=== PATIENT | female | born 1960 | race African-American/Black ===

== ENCOUNTER 2020-07-22 23:10 | Emergency (ER) | payer MEDICARE, OTHER ==
[~2020-07-22 23:10] MED LIST: ATIVAN1 MG PO; HCTZ12.5 MG PO; LIPITOR 10MG TA10 MG PO; TENORMIN50 MG PO
[2020-07-23] MEDS ORDERED: TRAMADOL HCL50 MG PO (02:58)
== END 2020-07-23 03:14 | disposition home or self-care (01) ==
LOC: FER 23:10
DX: S76.011A Strain of muscle, fascia and tendon of right hip, initial encounter (principal); M25.561 Pain in right knee; I10 Essential (primary) hypertension; Z79.899 Other long term (current) drug therapy; W01.0XXA Fall on same level from slipping, tripping and stumbling without subsequent striking against object, initial encounter
CPT/HCPCS: 73502; 73564; 73610

== ENCOUNTER 2020-09-23 14:06 | Emergency (ER) | payer MEDICARE, OTHER ==
[~2020-09-23 14:06] MED LIST changes: +TRAMADOL HCL50 MG PO
[2020-09-23 15:38] LABS: BASOPHIL 0.4 % (0-2); EOSINOPHIL 0.9 % (0-5); HCT 41.5 % (37.0-47.0); HGB 13.5 g/dl (12.5-16.0); LYMPHOCYTE 22.7 % (15-48); MCHC 32.5 g/dL (32.0-36.0); MCV 79.8 fL (78.0-100.0); MONOCYTE 12.3 % (0-12); MPV 9.9 fL (6.0-9.5); NEUTROPHIL 63.3 % (41-80); NRBC 0; PLT 229 K/uL (150-400); RDW 13.7 % (11.5-14.0); WBC 5.7 K/uL (4.0-10.5)
[2020-09-23 16:08] LABS: BUN/CREAT RATIO (CALC) 14.3 RATIO; CREATININE 0.7 mg/dL (0.51-0.95); POTASSIUM 3.5 mmol/L (3.5-5.1)
[2020-09-23 18:25] LABS: BILIRUBIN NEGATIVE (NEGATIVE); BLOOD NEGATIVE Ery/uL (NEGATIVE); CLARITY CLEAR (CLEAR); COLOR YELLOW (YELLOW); GLUCOSE (U) NORMAL (NORMAL); LEUKOCYTES NEGATIVE Leu/uL (NEGATIVE); NITRITE NEGATIVE (NEGATIVE); PROTEIN NEGATIVE (NEGATIVE); SPECIFIC GRAVITY 1.015 (1.001-1.030); UROBILINOGEN 0.2 mg/dL (0.2-1.0)
[2020-09-23 18:37] LABS: CORONAVIRUS 2019 SARS-COV-2 NEGATIVE (NEGATIVE); INFLUENZA A NAA NEGATIVE (NEGATIVE)
[2020-09-23] MEDS ORDERED: AZITHROMYCIN250 MG PO (18:45)
[2020-09-23] MEDS ORDERED: BACLOFEN 10MG T10 MG PO (18:45)
[2020-09-23] MEDS ORDERED: PREDNISONE 20MG20 MG PO (18:45)
== END 2020-09-23 19:14 | disposition home or self-care (01) ==
LOC: FER 14:06
PROVIDERS: Nurse Practitioner Family
DX: J18.9 Pneumonia, unspecified organism (principal); H61.22 Impacted cerumen, left ear; M54.2 Cervicalgia; I10 Essential (primary) hypertension; Z88.1 Allergy status to other antibiotic agents; Z90.710 Acquired absence of both cervix and uterus; Z79.899 Other long term (current) drug therapy; Z20.822 Contact with and (suspected) exposure to COVID-19
CPT/HCPCS: 36415; 71046; 80048; 81003; 84484; 85025; 93005; 94010; J0696; J2930; U0002

== ENCOUNTER 2021-07-18 20:07 | Emergency (ER) | payer MEDICARE, OTHER ==
[~2021-07-18] VITALS: Ht 152.4 cm; Wt 84.8 kg
[~2021-07-18 20:07] MED LIST changes: +AZITHROMYCIN250 MG PO; +BACLOFEN 10MG T10 MG PO; +PREDNISONE 20MG20 MG PO
[2021-07-18] MEDS ORDERED: CYCLOBENZAPRINE5 MG PO (21:49)
== END 2021-07-18 22:00 | disposition home or self-care (01) ==
LOC: FER 20:07
DX: S16.1XXA Strain of muscle, fascia and tendon at neck level, initial encounter (principal); I10 Essential (primary) hypertension; Z88.6 Allergy status to analgesic agent; Z79.899 Other long term (current) drug therapy
CPT/HCPCS: 99283

== ENCOUNTER 2021-12-25 15:45 | Emergency (ER) | payer MEDICARE, OTHER ==
[~2021-12-25 15:45] MED LIST changes: +CYCLOBENZAPRINE5 MG PO
[2021-12-25 17:18] LABS: BILIRUBIN NEGATIVE (NEGATIVE); BLOOD 3+ Ery/uL (NEGATIVE); CLARITY CLEAR (CLEAR); COLOR YELLOW (YELLOW); GLUCOSE (U) NORMAL (NORMAL); LEUKOCYTES 1+ Leu/uL (NEGATIVE); NITRITE POSITIVE (NEGATIVE); PROTEIN NEGATIVE (NEGATIVE); SPECIFIC GRAVITY >=1.030 (1.001-1.030); UROBILINOGEN 0.2 mg/dL (0.2-1.0)
[2021-12-25 17:29] LABS: BACTERIA 3+; URINARY WBC TNTC
[2021-12-25] MEDS ORDERED: BACTRIM DS TAB1 EACH PO (18:07)
== END 2021-12-25 18:15 | disposition home or self-care (01) ==
LOC: FER 15:45
PROVIDERS: Internal Medicine
DX: N39.0 Urinary tract infection, site not specified (principal); I10 Essential (primary) hypertension; Z28.310 Unvaccinated for COVID-19; Z79.899 Other long term (current) drug therapy
CPT/HCPCS: 81001; 87077; 87088; 87186; J0696